=== PATIENT | female | born 1980 | race Asian ===

== ENCOUNTER 2017-10-26 08:00 | Inpatient (IN) | payer SELFPAY ==
[~2017-10-26] VITALS: Ht 157 cm; Wt 58.1 kg
[2017-10-26] MEDS ORDERED: DOCUSATE SODIUM 100 MG GELCAP PO PRN (08:40)
[2017-10-26] MEDS ORDERED: ACETAMINOPHEN 325 MG TAB PO PRN (08:40)
[2017-10-26] MEDS ORDERED: MORPHINE SULFATE 2 MG/ML SYR IVP PRN (08:40)
[2017-10-26] MEDS ORDERED: HYDROcodone/APAP 5/325 MG 1 TAB TAB PO PRN ×2 (08:40→11:20)
--- NOTE | 2017-10-26 08:59 | NUR ---
PATIENT HAS BEEN SCREENED AND CATEGORIZED LOW NUTRITION RISK. PATIENT WILL BE SEEN WITHIN 7 DAYS OF ADMISSION. 10/31/[address]
[2017-10-26] MEDS ORDERED: ceFAZolin 2,000 MG in NACL 0.9% 100 ML IV ONE (10:30)
[2017-10-26 10:40] LABS: APPEARANCE,URINE CLEAR (CLEAR); BILIRUBIN,URINE NEGATIVE (NEGATIVE); BLOOD, URINE TRACE-I (NEGATIVE); COLOR,URINE YELLOW (YELLOW); LEUKOCYTE ESTERASE ,URINE NEGATIVE (NEGATIVE); NITRITE, URINE NEGATIVE (NEGATIVE); PH,URINE 7.5 (5.0-9.0); UGLUCOSE NEGATIVE (NEGATIVE)
[2017-10-26 10:45] VITALS: BP 109/71
[2017-10-26] MEDS ORDERED: OXYTOCIN 10 UNITS/ML VIAL ONE (10:54)
[2017-10-26] MEDS ORDERED: TRIAMCINOLONE 40 MG/ML 5ML VIAL ONE (10:54)
[2017-10-26] MEDS ORDERED: MORPHINE PRES FREE 10 MG/10 ML AMP IV ONE (10:54)
[2017-10-26 10:56] LABS: RBC,URINE 0-5 (RARE) /HPF (0-5)
[2017-10-26] MEDS ORDERED: ONDANSETRON 4 MG/2 ML VIAL IVP ONE (11:04)
[2017-10-26] MEDS ORDERED: OXYTOCIN 20 UNITS in LACTATED RINGERS 1,000 ML IV SCH ×3 (11:10→11:22)
[2017-10-26] MEDS ORDERED: TEMAZEPAM 15 MG CAP PO PRN (11:20)
[2017-10-26] MEDS ORDERED: METHYLERGONOVINE 0.2 MG/ML AMP IM PRN (11:20)
[2017-10-26] MEDS ORDERED: TRIMETHOBENZAMIDE 200 MG/2 ML SYR IM PRN (11:20)
[2017-10-26] MEDS ORDERED: IBUPROFEN 800 MG TAB PO PRN (11:20)
[2017-10-26] MEDS ORDERED: MEASLES, MUMPS, AND RUBELLA 1 VIAL SQVAC PRN (11:20)
[2017-10-26] MEDS ORDERED: oxyCODONE/APAP 5/325 MG 1 TAB TAB PO PRN (11:20)
[2017-10-26] MEDS ORDERED: NALOXONE 0.4 MG/ML VIAL IVP PRN ×2 (11:25)
[2017-10-26] MEDS ORDERED: KETOROLAC 30 MG/ML VIAL IVP PRN (11:25)
[2017-10-26] MEDS ORDERED: diphenhydrAMINE 50 MG/ML VIAL IVP PRN (11:25)
[2017-10-26] MEDS ORDERED: diphenhydrAMINE 50 MG/ML VIAL ONE (11:57)
[2017-10-26 14:08] LABS: BASOPHILS # (AUTO) 0.1 K/uL (0.00-0.22); BASOPHILS % (AUTO) 0.8 % (0.0-2.0); EOSINOPHILS # (AUTO) 0.1 K/uL (0-0.4); HEMATOCRIT 38.7 % (36-48); HEMOGLOBIN 13.1 g/dL (12.0-16.0); LYMPHOCYTES # (AUTO) 1.4 K/uL (2.5-16.5); MEAN CORPUSCULAR HEMOGLOBIN 34 pg (27-31); MEAN CORPUSCULAR HGB CONC 34 g/dL (33-37); MEAN CORPUSCULAR VOLUME 99 fL (80-94); MONOCYTES # (AUTO) 1.1 K/uL (0.8-1.0); MONOCYTES % (AUTO) 10.1 % (1.7-9.3); NEUTROPHILS # (AUTO) 8.4 K/uL (1.8-7.7); NEUTROPHILS % (AUTO) 75.1 % (42.2-75.2); PLATELET COUNT (AUTO) 210 K/uL (140-450); RED BLOOD CELL COUNT(AUTO) 3.93 MIL/uL (4.20-5.40); RED CELL DISTRIBUTION WIDTH 12.4 % (11.6-13.7); WHITE BLOOD COUNT (AUTO) 11.1 K/uL (4.8-10.8)
[2017-10-26] MEDS: DOCUSATE SOD/SENNA 50/8.6 MG 1 TAB PO SCH (21:00)
[2017-10-26] MEDS: LACTATED RINGERS 1,000 ML IV SCH (23:29)
[2017-10-27 06:01] LABS: BASOPHILS # (AUTO) 0.1 K/uL (0.00-0.22); BASOPHILS % (AUTO) 0.4 % (0.0-2.0); EOSINOPHILS # (AUTO) 0.1 K/uL (0-0.4); EOSINOPHILS % (AUTO) 0.3 % (0.0-4.0); HEMATOCRIT 32.8 % (36-48); HEMOGLOBIN 10.7 g/dL (12.0-16.0); LYMPHOCYTES # (AUTO) 0.9 K/uL (2.5-16.5); LYMPHOCYTES % (AUTO) 4.5 % (20.5-51.1); MEAN CORPUSCULAR HEMOGLOBIN 32 pg (27-31); MEAN CORPUSCULAR HGB CONC 33 g/dL (33-37); MEAN CORPUSCULAR VOLUME 99 fL (80-94); MONOCYTES % (AUTO) 5.4 % (1.7-9.3); NEUTROPHILS # (AUTO) 16.8 K/uL (1.8-7.7); NEUTROPHILS % (AUTO) 89.4 % (42.2-75.2); PLATELET COUNT (AUTO) 204 K/uL (140-450); RED BLOOD CELL COUNT(AUTO) 3.32 MIL/uL (4.20-5.40); RED CELL DISTRIBUTION WIDTH 12.1 % (11.6-13.7)
[2017-10-27 06:38] LABS: WHITE BLOOD COUNT (AUTO) 18.9 K/uL (4.8-10.8)
[2017-10-27] MEDS: LACTATED RINGERS 1,000 ML IV SCH (07:35)
[2017-10-27] MEDS ORDERED: INFLUENZA VIRUS VACCINE QUAD 0.5 ML SYR IMVAC SCH (09:00)
[2017-10-27] MEDS: SIMETHICONE 80 MG TAB.CHEW PO PRN (23:27)
[2017-10-28] MEDS: DOCUSATE SOD/SENNA 50/8.6 MG 1 TAB PO SCH (20:44)
[2017-10-28] MEDS: SIMETHICONE 80 MG TAB.CHEW PO PRN (20:44)
== END 2017-10-29 16:05 | disposition home or self-care (01) | DRG 766 ==
LOC: MLD 08:00 → MFCC 13:05
PROVIDERS: ADMIT Obstetrics & Gynecology; ATTEND Obstetrics & Gynecology
PROC: 10D00Z1 Extraction of Products of Conception, Low, Open Approach (ICD-10-PCS; principal; 2017-10-26 11:00)
DX: O34.211 Maternal care for low transverse scar from previous cesarean delivery (principal); Z37.0 Single live birth; Z3A.39 39 weeks gestation of pregnancy
CPT/HCPCS: 36415; 81001; 85025; 86592; 86886; 86900; 86901; 87086; J0690; J1200; J2270; J2405; J2590; J3301; J7120